=== PATIENT | male | born 1950 | race Caucasian/White ===

== ENCOUNTER → 2017-11-07 | Outpatient (CLI) | payer MEDICARE, OTHER ==
--- NOTE | 2017-11-07 10:48 | US ---
EXAMINATION TYPE: US venous doppler duplex LE LT DATE OF EXAM: 11/07/2017 10:24 AM COMPARISON: NONE CLINICAL HISTORY: M79.605 Pain in Lower Left Limb. left lateral ankle discoloration that hurts at nig ht only, no h/o dvt, h/o bone marrow transplant SIDE PERFORMED: Left TECHNIQUE: The lower extremity deep venous system is examined utilizing real time linear array sonog lucita with graded compression, doppler sonography and color-flow sonography. VESSELS IMAGED: External Iliac Vein (EIV) Common Femoral Vein Deep Femoral Vein Greater Saphenous Vein * Femoral Vein Popliteal Vein Small Saphenous Vein * Proximal Calf Veins (* superficial vessels) Grayscale, color doppler, spectral doppler imaging performed of the deep veins of the lower extremiti es. There is normal flow, compressibility, vascular waveforms. Left Leg: Appears negative for DVT, no abnormality seen at area of discoloration tech impression to Katalina Delaney @1030 IMPRESSION: No evidence for DVT at this time.
== END | disposition home or self-care (01) ==
LOC: RADUSWWP 09:53
PROVIDERS: ATTEND Family Medicine
DX: M79.605 Pain in left leg (principal)

== ENCOUNTER → 2018-03-06 | Outpatient (CLI) | payer MEDICARE, OTHER ==
[2018-03-06 10:21] LABS: Blood Urea Nitrogen 16 mg/dL (9-20)
--- NOTE | 2018-03-06 16:28 | CT ---
CT CHEST FOR PULMONARY EMBOLISM. EXAMINATION TYPE: CT angio chest DATE OF EXAM: 03/06/2018 INDICATION: Aneurysm CT DLP: 393.20 mGycm, Automated exposure control for dose reduction was used. CONTRAST: Patient injected with 100 mL of Isovue 370. COMPARISON: 03/28/2017 TECHNIQUE: CT of the chest is performed on a spiral scan at 2 mm thick sections. Study is performed with intravenous contrast timed for evaluation for pulmonary embolism. This will limit additional po rtions of the evaluation. 3-D MIP images reconstructed by the technologist are reviewed on the compu ter in the coronal and sagittal planes. FINDINGS: No persistent filling defects are evident to suggest an acute pulmonary embolism. No mediastinal or hilar adenopathy enlarged by CT criteria is evident. The ascending aorta diameter at the level of the main pulmonary artery is 4.2 cm. The main pulmonary artery diameter at the bifur cation is 2.7 cm. The aorta appears less prominent than previous measuring 4.9 cm. Minimal thickening is present at the lung apices. Subtle compressive atelectasis may be present. Limited CT section through the upper abdomen. The wall of the aorta appears thick through the level o f the dov of the diaphragm. There is some tortuosity and prominence of the aorta at this level. Donis sverse dimension is 3.4 cm. This also appears less prominent than the comparison. Three-D imaging is performed. There is some fusiform prominence of the distal thoracic aorta. The asc ending thoracic aorta is prominent. There is a three-vessel arch. IMPRESSIONS: 1. Ascending thoracic aorta aneurysm appears less prominent than on the prior study. This currently m easures 4.2 cm in AP dimension. Likewise, the fusiform prominence of the distal thoracic aorta at the level of the diaphragm appears less prominent than previously currently estimated at 3.4 cm.
== END | disposition home or self-care (01) ==
LOC: RADCTMAIN 09:48
PROVIDERS: ATTEND Internal Medicine Interventional Cardiology
DX: I71.2 Thoracic aortic aneurysm, without rupture (principal)
CPT/HCPCS: 82565; 84520; 71275; Q9967

== ENCOUNTER → 2020-01-15 | Outpatient (CLI) | payer MEDICARE, OTHER ==
[2020-01-15 08:59] LABS: African American GFR (CKD) >90 (>60 ml/min/1.73 sqM); Blood Urea Nitrogen 15 mg/dL (9-20); Non-African American GFR(CKD) 86 (>60 ml/min/1.73 sqM)
--- NOTE | 2020-01-15 11:24 | CT ---
EXAMINATION TYPE: CT angio chest DATE OF EXAM: 01/15/2020 COMPARISON: 03/06/2018 HISTORY: 69-year-old male I71.2, Thoracic Aortic Aneurysm w/o Rupture TECHNIQUE: Contiguous axial scanning of the chest performed with IV Contrast, patient injected with 1 00 mL of Isovue 370. Coronal/sagittal MIP reconstructions performed. 3-D reconstructions generated on a dedicated independent workstation. CT DLP: 206.9 mGycm Automated exposure control for dose reduction was used. FINDINGS: Heart is normal size without pericardial effusion. Stable aneurysm of the aortic root at 4.2 cm. Ascending aorta measures 4.7 cm versus 4.6 cm, previously. Stable aneurysm proximal arch at 3.7 cm. Stable ectasia of the upper and mid descending thoracic aorta at 3.1 cm. Fusiform aneurysm of the distal descending thoracic aorta and at the level of the diaphragmatic hiatu s measuring up to 5.0 cm versus 4.6 cm, previously. Circumferential mural-based plaque and thrombus i s redemonstrated. No thoracic lymphadenopathy by CT size criteria. Mild bilateral gynecomastia. Mild scattered emphysematous change without consolidation or pleural effusion. Mild biapical pleural- parenchymal scarring. Small anterior splenule. Bones: No osseous destructive process. IMPRESSION: 1. REDEMONSTRATED ANEURYSMAL THORACIC AORTA. AORTIC ROOT IS STABLE AT 4.2 CM. ASCENDING AORTA IS STAB LE TO MINIMALLY INCREASED AT 4.7 CM VERSUS 4.6 CM, PREVIOUSLY. 2. FUSIFORM ANEURYSM OF THE DISTAL DESCENDING THORACIC AORTA AND AT THE LEVEL OF THE DIAPHRAGMATIC HI ATUS APPEARS INCREASED AT 5.0 CM VERSUS 4.6 CM, PREVIOUSLY. CIRCUMFERENTIAL MURAL-BASED PLAQUE AND TH ROMBUS IS REDEMONSTRATED. 3. COPD WITH MILD EMPHYSEMA.
== END | disposition home or self-care (01) ==
LOC: RADCTMAIN 08:14
PROVIDERS: ATTEND Internal Medicine Interventional Cardiology
DX: I71.2 Thoracic aortic aneurysm, without rupture (principal); J43.9 Emphysema, unspecified
CPT/HCPCS: 82565; 84520; 71275; 36415; Q9967

== ENCOUNTER → 2021-06-20 | Outpatient (CLI) | payer MEDICARE, OTHER ==
--- NOTE | 2021-06-20 10:33 | CT ---
EXAMINATION TYPE: CT angio chest DATE OF EXAM: 06/20/2021 COMPARISON: CTA aorta January 15, 2020 and older studies. HISTORY: thoracic aneurysm w/o rupture CT DLP: 810 mGycm. Automated Exposure Control for Dose Reduction was Utilized. CONTRAST: CTA scan of the thorax is performed with IV Contrast, patient injected with 100 mL of Isovue 370, ane urysm protocol. . 3D reconstructed images are created on an independent workstation and reviewed. FINDINGS: LUNGS: Mild to moderate biapical pleural/parenchymal scarring is redemonstrated. Mild anterior lowe r lung linear scarring again seen. Stable groundglass opacity posterior right lung base just above th e diaphragm. There is no pleural effusion or pneumothorax seen. The tracheobronchial tree is patent. MEDIASTINUM: Noncontrast images show no suspicious hyperdense material to suggest intramural hematoma . Satisfactory enhancement of the central pulmonary arteries. Persistent ascending aortic aneurysm u p to 4.8 cm current study axial image 38 not significantly changed from prior study when accounting f or technical differences. Normal three-vessel origin from the arch. Slight tortuous course to the allyson cending aorta with aneurysm near diaphragmatic hiatus difficult to accurately measure due to tortuous course in estimated measure 5.3 cm diameter axial image 65. Moderate peripheral noncalcified plaque at this level redemonstrated. Patent celiac artery and SMA. There are no new greater than 1 cm hilar or mediastinal lymph nodes. No cardiomegaly or pericardial effusion is seen. OTHER: Bilateral flame-shaped subareolar gynecomastia is redemonstrated. Slight scoliotic curvature u pper thoracic spine. IMPRESSION: Stable 4.8 cm ascending aortic aneurysm and approximate 5.3 cm aneurysm of the descending aorta near the diaphragm.
== END | disposition home or self-care (01) ==
LOC: RADCTMAIN 08:01
PROVIDERS: ATTEND Internal Medicine Interventional Cardiology
DX: I71.2 Thoracic aortic aneurysm, without rupture (principal)
CPT/HCPCS: 82565; 84520; 71275; 36415; Q9967

== ENCOUNTER → 2022-01-09 | Outpatient (CLI) | payer MEDICARE, OTHER ==
--- NOTE | 2022-01-09 12:02 | CT ---
EXAMINATION TYPE: CT angio chest CT DLP: 430.7 mGycm, Automated exposure control for dose reduction was used. DATE OF EXAM: 01/09/2022 11:37 AM COMPARISON: CTA chest 06/20/2021, 01/15/2020. CLINICAL INDICATION:Male, 71 years old with history of I71.2 Thoracic Aortic Aneurysm without rupture ; TECHNIQUE/CONTRAST: CTA scan of the thorax is performed without and with IV Contrast, patient injected with 100 mL of Iso tami 370. MIP and 3-D images are created and reviewed. Coronal and sagittal reformats reviewed. FINDINGS: Lungs/Pleura: No pleural effusion, pneumothorax, focal consolidation. Mild centrilobular emphysematou s changes. Bilateral pleural parenchymal apical scarring. No concerning pulmonary nodules. Airway: Large airways are patent. Heart: Heart is within normal limits for size. Vasculature: Stable ascending thoracic aorta aneurysm measuring up to 4.8 cm (series 3, image 35). No rmal three-vessel origin from the arch. Slight tortuous course to the descending thoracic aorta with aneurysm near the diaphragmatic hiatus. This is difficult to accurately measure due to tortuous cours e with estimated size measuring 5.2 cm in diameter (series 3, image 61). Previously 5.3 cm. Moderate peripheral noncalcified plaque at this level redemonstrated. The celiac axis, SMA, and bilateral milvia l arteries are patent. Mediastinum/hilum: No evidence of adenopathy. Musculoskeletal: No acute osseous abnormalities Soft Tissues: Bilateral gynecomastia. Lower neck: No significant findings. Upper Abdomen: No significant findings. IMPRESSION: Stable 4.8 cm ascending aortic aneurysm approximately 5.3 cm aneurysm of the descending aorta near th e diaphragm.
== END | disposition home or self-care (01) ==
LOC: RADCTMAIN 10:02
PROVIDERS: ATTEND Internal Medicine Interventional Cardiology
DX: I71.2 Thoracic aortic aneurysm, without rupture (principal)
CPT/HCPCS: 82565; 84520; 71275; 36415; Q9967

== ENCOUNTER → 2022-12-11 | Outpatient (CLI) | payer MEDICARE, OTHER ==
[2022-12-11 16:13] LABS: ALT 21 U/L (10-49); AST 23 U/L (14-35); Chol/HDL Ratio 3.04 Ratio; LDL Cholesterol,Calculated 120.5 mg/dL (0.0-131.0)
== END | disposition home or self-care (01) ==
LOC: LABWHC1 08:11
PROVIDERS: ATTEND Nurse Practitioner Adult Health
DX: E78.2 Mixed hyperlipidemia (principal)
CPT/HCPCS: 36415; 80061; 84450; 84460

== ENCOUNTER → 2024-01-04 | Outpatient (CLI) | payer MEDICARE, OTHER ==
--- NOTE | 2024-01-04 16:04 | CT ---
EXAMINATION TYPE: CT chest wo con CT DLP: 282 mGycm, Automated exposure control for dose reduction was used. DATE OF EXAM: 01/04/2024 3:52 PM COMPARISON: Multiple CTA chest with most recent 07/31/2022. CLINICAL INDICATION:Male, 73 years old with history of I71.20 THORACIC AORTIC ANEURYSM; PHH, THORACIC AORTIC ANEURYSM TECHNIQUE: Multiple axial images were obtained through the chest without IV contrast. Lack of IV or o ral contrast limits evaluation of solid and hollow organ viscera. . Coronal and sagittal reformats re viewed. FINDINGS: LUNGS/ PLEURA: No pleural effusion, pneumothorax, focal consolidation. Biapical pleural-parenchymal scarring. Linear scarring within the right middle lobe. No suspicious pulmonary nodule or mass. AIRWAY: Patent and unremarkable.. HEART: Mildly enlarged. No pericardial effusion. MEDIASTINUM: No gross evidence of adenopathy. VASCULATURE: Increased size of aortic root aneurysm measuring 4.6 cm, previously 4.2 cm. Stable aneur ysmal dilatation of the descending thoracic aorta measuring up to 4.7 cm. Slight increase in size of descending thoracic aortic fusiform aneurysm just above the aortic hiatus measuring up to 5.9 cm, pre viously 5.5 cm. No increased attenuation within the aorta. MUSCULOSKELETAL: No acute osseous abnormalities SOFT TISSUES/LYMPH NODES: Bilateral gynecomastia. LOWER NECK: No significant findings. UPPER ABDOMEN: No significant findings. IMPRESSION: Slight increase in size of aortic root and descending thoracic aortic aneurysms. Stable size of ascen ding thoracic aortic aneurysm. Evaluation is limited due to lack of intravenous contrast.
== END | disposition home or self-care (01) ==
LOC: RADCTMAIN 15:28
PROVIDERS: ATTEND Thoracic Surgery (Cardiothoracic Vascular Surgery)
DX: I71.21 Aneurysm of the ascending aorta, without rupture (principal); I71.23 Aneurysm of the descending thoracic aorta, without rupture
CPT/HCPCS: 71250

== ENCOUNTER → 2024-02-25 | Outpatient (CLI) | payer MEDICARE, OTHER ==
[2024-02-25 10:25] LABS: ALT 13 U/L (10-49); AST 24 U/L (14-35); Albumin 4.2 g/dL (3.8-4.9); Alkaline Phosphatase 89 U/L (41-126); BUN/Creat Ratio 18.67 Ratio (12.00-20.00); Blood Urea Nitrogen 22.4 mg/dL (9.0-27.0); Calcium 9.3 mg/dL (8.7-10.3); Carbon Dioxide 27.4 mmol/L (21.6-31.8); Chloride 99 mmol/L (96-109); Chol/HDL Ratio 2.88 Ratio; Globulin 2.8 g/dL (1.6-3.3); Glucose 94 mg/dL (70-110); LDL Cholesterol,Calculated 93.6 mg/dL (0.0-131.0); Potassium 4.5 mmol/L (3.5-5.5); Sodium 138 mmol/L (135-145); Total Bilirubin 0.8 mg/dL (0.3-1.2)
== END | disposition home or self-care (01) ==
LOC: LABWHC1 07:10
PROVIDERS: ATTEND Internal Medicine Interventional Cardiology
DX: E78.2 Mixed hyperlipidemia (principal)
CPT/HCPCS: 36415; 80053; 80061

== ENCOUNTER → 2024-03-10 | Outpatient (CLI) | payer MEDICARE, OTHER ==
[2024-03-10 10:31] LABS: African American GFR (CKD) 69 (>60 ml/min/1.73 sqM); Non-African American GFR(CKD) 60 (>60 ml/min/1.73 sqM)
--- NOTE | 2024-03-10 14:33 | CT ---
EXAMINATION TYPE: CT angio thor/abd pel aorta CT DLP: 778 mGycm, Automated exposure control for dose reduction was used. DATE OF EXAM: 03/10/2024 11:36 AM COMPARISON: CT chest 01/04/2024, 07/31/2022, 01/09/2022. CLINICAL INDICATION:Male, 73 years old with history of I71.60 AAA; PHH, AAA TECHNIQUE: Dissection protocol: Multiple axial CT images of the chest, abdomen, and pelvis were obtai john prior and to the administration of IV contrast. 3-D reformats and maximum intensity projection fo rmat were performed on a separate workstation. Then the abdomen was scanned after administration of 1 00 cc of Isovue 370 IV contrast. FINDINGS: ARTERIAL VASCULATURE: Conventional aortic arch. The vessels are patent. No evidence for intramural he matoma. No aneurysm dilatation of the aortic root measuring up to 4.5 cm, previously 4.6 cm. Stable a scending thoracic aortic aneurysm measuring up to 4.6 cm, previously 4.7 cm. The upper descending tho racic aorta measures up to 3.6 cm. The distal descending thoracic aorta measures up to 6.7 cm at the aortic hiatus with moderate eccentric mural thrombus. The abdominal aorta is normal in caliber measur ing up to 1.9 cm. Mild atherosclerotic calcification of the bilateral common iliac and internal/exter nal iliac arteries. 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 Long segment dissection involving the left common iliac artery at the aneurysm e xtending through the left external iliac artery distally (series 6, image 234-260). The false lumen i s opacified with the left internal iliac artery appears to be a arising from the true lumen. Fusiform aneurysm involving the right internal iliac artery measuring up to 1.6 cm with contrast enhancement (series 6, image 250). Moderate stenosis at the origin of the celiac axis secondary to noncalcified p laque. The SMA is widely patent. The single bilateral renal arteries are widely patent. The MARIYA is wi suraj patent. Lungs/pleura: Biapical pleural-parenchymal scarring. No suspicious pulmonary nodule or mass. No pleur al effusion or pneumothorax. No focal consolidation. Heart: Within normal limits. No pericardial effusion. Mediastinum: No gross evidence of adenopathy. Lower Neck: No significant findings. Soft tissues: Bilateral gynecomastia. Abdomen: Liver: Unremarkable. Gallbladder and Bile ducts: Unremarkable. Pancreas: Unremarkable. Spleen: Unremarkable. Adrenal glands: Unremarkable. Kidneys and Ureters: Unremarkable. No hydronephrosis. Stomach and Bowel: Unremarkable. No evidence of bowel obstruction. Peritoneum: No evidence of pneumoperitoneum, free fluid, or adenopathy. Bladder: Unremarkable. Reproductive: Unremarkable. Abdominal wall/soft tissues: Unremarkable. Musculoskeletal: The osseous structures appear intact. Degenerative disc disease L5-S1. IMPRESSION: 1. 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 2. 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 3. 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 Left internal iliac artery appears to arise from the t rue lumen of the left common iliac artery. 4. Stable aneurysmal dilatation of the aortic root, ascending thoracic aorta, and descending thoracic aorta from most recent CT. The descending thoracic aorta again measures 6.7 cm at the aortic hiatus with moderate eccentric mural thrombus. [facility], , 03/10/2024 2:30 PM
== END | disposition home or self-care (01) ==
LOC: RADCTMAIN 10:02
PROVIDERS: ATTEND Surgery
DX: I71.60 Thoracoabdominal aortic aneurysm, without rupture, unspecified
CPT/HCPCS: 36415; 71275; 74174; 82565

== ENCOUNTER → 2024-04-28 | Day surgery (SDC) | payer MEDICARE, OTHER ==
[2024-04-25 08:53] VITALS: BMI 21.9
[~2024-04-28] MED LIST: ALPRAZolam 0.25 MG TAB PO PRN; ALPRAZolam 0.5 MG TAB PO PRN; ATORVASTATIN 40 MG TAB PO SCH; ATORVASTATIN 80 MG TAB PO ONE; METOPROLOL TARTRATE 25 MG TAB PO SCH; NITROGLYCERIN SL TABS 0.4 MG TAB SUBLINGUAL PRN; RX INFO: IV CONTRAST WAS GIVEN 1 EACH MISC MISCELLANE PRN; SODIUM CHLORIDE 0.9% 1,000 ML IV SCH
[2024-04-28] MEDS: SODIUM CHLORIDE 0.9% 1,000 ML in EMPTY BAG 1 BAG IV SCH (08:55)
[2024-04-28] MEDS: IV FLUID CONTINUATION 1,000 ML IV ONE (08:57)
[2024-04-28] MEDS: ASPIRIN 325 MG TAB PO ONE (09:02)
[2024-04-28 09:08] LABS: Basophils % (A) 1 %; Eosinophils # (A) 0.1 k/uL (0-0.7); Eosinophils % (A) 1 %; HCT 42.1 % (39.0-53.0); HGB 13.6 gm/dL (13.0-17.5); Lymphocytes # (A) 1.8 k/uL (1.0-4.8); Lymphocytes % (A) 29 %; MCH 30.3 pg (25.0-35.0); MCHC 32.2 g/dL (31.0-37.0); MCV 94.1 fL (80.0-100.0); Mean Platelet Volume 8.6; Monocytes # (A) 0.3 k/uL (0-1.0); Monocytes % (A) 5 %; Neutrophils % (A) 63 %; Platelet Count 178 k/uL (150-450); RBC 4.48 m/uL (4.30-5.90); RDW 12.6 % (11.5-15.5); WBC 6.4 k/uL (3.8-10.6)
[2024-04-28 09:09] VITALS: TEMP 97.7
[2024-04-28 09:33] LABS: African American GFR (CKD) 70 (>60 ml/min/1.73 sqM); Anion Gap 6 mmol/L; Blood Urea Nitrogen 14 mg/dL (9-20); Calcium 9.2 mg/dL (8.4-10.2); Carbon Dioxide 30 mmol/L (22-30); Chloride 100 mmol/L (98-107); Glucose 102 mg/dL (74-99); Non-African American GFR(CKD) 61 (>60 ml/min/1.73 sqM); Potassium 3.9 mmol/L (3.5-5.1); Sodium 136 mmol/L (137-145)
[2024-04-28] MEDS: HEPARIN SODIUM,PORCINE 10,000 UNIT in SODIUM CHLORIDE 0.9% 1,000 ML IRRIGATION PRN (09:41)
[2024-04-28] MEDS: HEPARIN SODIUM,PORCINE (1 ML) 2,500 UNIT in SODIUM CHLORIDE 0.9% 250 ML IRRIGATION PRN (09:41)
[2024-04-28] MEDS: fentaNYL (PF) 50 MCG/1 ML VIAL IVP ONE (10:07)
[2024-04-28] MEDS: LIDOCAINE 1% INJ 10MG/ML (20 ML MDV) SQ ONE (10:08)
[2024-04-28] MEDS: SODIUM CHLORIDE 0.9% 500 ML 500 ML IV ONE (10:09)
[2024-04-28] MEDS: VERAPAMIL SYRINGE (5 MG/10 ML) INTRAARTER ONE ×2 (10:10→10:41)
[2024-04-28] MEDS: HEPARIN SODIUM 1,000 UN/ML (10ML VL) IV ONE (10:29)
[2024-04-28] MEDS: MIDAZOLAM 2 MG/2 ML VIAL IVP ONE (10:29)
[2024-04-28 10:38] LABS: O2 Sat Blood Gas 65.8 %
[2024-04-28 10:39] LABS: O2 Sat Blood Gas 95.4 %
[2024-04-28 10:40] LABS: O2 Sat Blood Gas 71.9 %
[2024-04-28] MEDS: IOPAMIDOL-370 100ML BTL INJ ONE (10:51)
[2024-04-28] MEDS: ONDANSETRON 4 MG/2 ML VIAL IVP ONE (10:55)
--- NOTE | 2024-04-28 11:07 | P.CARDCATH ---
Date of Procedure: 04/28/24 Description of Procedure: Cardiac Catheterization: The patient is a 73-year-old male with known history of hyperlipidemia, dilated ascending aorta that has been evaluated by Dr. Bustillo at [facility] to undergo ascending aortic repair and is undergoing further evaluation prior to his surgery. Recommendations were made regarding cardiac catheterization, the risks and the complications were discussed with the patient who is in full understanding and agreement. Procedure Description: Patient was brought to roofing laborer in fasting semi-sedated state after receiving Fentanyl and Benadryl achieiving moderate conscious sedated state. Using Xylocaine Anesthesia and modified Seldinger technique, a 6-Jamaican sheath was introduced in the right radial artery . The intravenous access in the right cephalic vein was exchanged over a wire to a 6 Jamaican sheath. Right heart catheterization was performed using Croydon-Gurjit catheter, multiple samples and pressures were obtained. Cardiac output by thermodilution was calculated. Subsequently, selective coronary angiography was performed using a 5-Jamaican 3.5 bend right Fabiano and 6 Jamaican 5 bend left Fabiano catheter. Multiple views of the coronary artery including hemiaxial views were obtained. Following that, catheter and sheath were removed. Hemostasis was obtained with deployment of vascular band . There was no immediate complication. Patient was returned to room in stable condition. Of note, the patient received a total of 3500 units of intravenous heparin as well as intra-arterial verapamil. The patient had severe vasospasm in the right radial artery requiring multiple dosing of verapamil. Findings: Left main: This is a short size vessel, bifurcating into LAD and left circumflex, left main has no obstructive disease LAD: This is a large size vessel, reaching to the apex, giving rise to 2 diagonal branch of moderate caliber, the LAD and its branches have no obstructive disease Left circumflex: This is a large nondominant vessel, giving rise to a large obtuse marginal branch that has no obstructive disease RCA: This is a dominant vessel, large in caliber, bifurcating distally to PDA and PLV. The mid right coronary artery has 20 to 30% plaque without any evidence of high-grade stenosis Left Ventriculogram: Not performed Hemodynamics: Pulmonary artery systolic of 29, diastolic of 14 with a mean of 20 mmHg, pulmonary capillary wedge pressure A-wave of 18, V wave of 18 with a mean of 14 mmHg, right ventricular systolic pressure of 30 with end-diastolic of 8 mmHg, right atrium A wave of 9, V wave of 8 with a mean of 7 mmHg. Cardiac output by thermodilution of 5 L/min with an index of 2.6 L/min/m. Cardiac output by Bridget 5.2 L/min with an index of 2.7 L/min/m. Arterial saturation of 95%, right atrium 66%, pulmonary artery 72%. Conclusion: 1. Mild disease in the RCA 2. Right dominance 3. No evidence of pulmonary hypertension 4. Significant vasospasm in the right radial artery Recommendations: The patient will proceed with evaluation for ascending aortic repair. The findings and the recommendations were discussed with the patient and the family and they were in full understanding and agreement. Duration of sedation is 42 minutes.
[2024-04-28 18:57] VITALS: RESP 16
[2024-04-28 19:02] VITALS: BP 125/61; PULSE 60
== END | disposition home or self-care (01) ==
LOC: CATHCVL 08:32
PROVIDERS: ATTEND Internal Medicine Interventional Cardiology
DX: I35.1 Nonrheumatic aortic (valve) insufficiency (principal); E78.2 Mixed hyperlipidemia; I71.21 Aneurysm of the ascending aorta, without rupture; Z79.899 Other long term (current) drug therapy
CPT/HCPCS: 93456; 80048; 85018; 82810; 85025; 99152; 99153; J2250; J1644 ×3; J2405; J2003; Q9967; J3010

== ENCOUNTER → 2024-08-18 | Outpatient (CLI) | payer MEDICARE, OTHER ==
--- NOTE | 2024-08-18 16:35 | US ---
EXAMINATION TYPE: US thyroid st tissue head/neck DATE OF EXAM: 08/18/2024 COMPARISON: NONE CLINICAL INDICATION: Male, 73 years old with history of E04.9 NONTOXIC GOITER, UNSPECIFIED; Pt states he was at [facility] for testing and they found a left sided thyroid nodule TECHNIQUE: Grayscale and color Doppler imaging of the thyroid gland. FINDINGS: GLAND SIZE: Right Lobe: 4.7 x 1.4 x 1.2 cm Overall Parenchyma: homogeneous Left Lobe: cm Overall Parenchyma: Isthmus Thickness: cm NODULES RIGHT: # of nodules measured on right: 1 1. 0.9 X 0.9 x 0.5 cm, upper lateral, TIRADS Score: 0 TIRADS Category 1: Composition: Cystic or almost completely cystic (0 points). Recommendation: No FNA LEFT: # of nodules measured on left: 1 1. 1.4 X 1.2 x 0.7 cm, upper mid, TIRADS Score: 4 TIRADS Category 4: Moderately Suspicious Composition: Solid or almost completely solid (2 points). Echogenicity: Hypoechoic (2 points). Shape: Wider than tall (0 points). Margin: Smooth (0 points). Echogenic foci: None or large comet-tail artifacts (0 points) Recommendation: If >1.5cm: FNA; If >1cm: Follow up at 1,2, 3,5 years ISTHMUS: # of nodules measured in the isthmus: 0 Bilateral neck scanned, no evidence of lymphadenopathy. IMPRESSION: Bilateral thyroid nodules, the left needs criteria for follow-up. [facility], , 08/18/2024 4:33 PM
== END | disposition home or self-care (01) ==
LOC: RADUSWWP 15:27
PROVIDERS: ATTEND Family Medicine
DX: E04.2 Nontoxic multinodular goiter (principal)
CPT/HCPCS: 76536